=== PATIENT | female | born 1975 | race Caucasian/White ===

== ENCOUNTER 2023-04-21 14:48 | Outpatient (NON) | payer OTHER, SELFPAY | END 2023-04-21 14:49 | disposition home or self-care (01) | LOC: ANHLAB 14:55 | PROVIDERS: Visit Provider Nurse Practitioner | DX: D48.5 Neoplasm of uncertain behavior of skin (principal) | CPT/HCPCS: 88305 ==

== ENCOUNTER 2023-10-04 09:26 | Outpatient (CLI) | payer OTHER, SELFPAY ==
--- NOTE | ~2023-10-04 | MR_ITS ---
MRI of the brain Clinical History: Paresthesia Technique: Axial and sagittal T1-weighted images were acquired. These were followed by axial T2-weigh cain, diffusion weighted, gradient, and FLAIR images. Following intravenous administration of 19 cc Mu ltiHance gadolinium, T1-weighted fat-sat imaging was performed in the axial, sagittal, and coronal pl anes. Findings: There is no acute infarct or intracranial hemorrhage. There is hypointense signal abnormali ty in the periventricular white matter bilaterally. Ventricles and subarachnoid spaces are unremarkable. Orbits are unremarkable. Paranasal sinuses and m astoid air cells are clear. Major intracranial flow voids appear intact. Sagittal midline structures are intact. No definite abnormal signal seen in the corpus callosum. There is a probable small extra-axial enhancing mass in the right CP angle region (series 13 image 58 ), which appears to be separate from the neurovascular structures, probably a small meningioma. IMPRESSION: Probable 8 mm meningioma at the right CP angle region, as above. Hyperintense signal in the periventricular white matter. This could reflect chronic microvascular isc hemic change. Correlate for any possibility of demyelinating disease. Reviewed, dictated and finalized at location M. IMPRESSION: Probable 8 mm meningioma at the right CP angle region, as above. Hyperintense signal in the periventricular white matter. This could reflect chr onic microvascular ischemic change. Correlate for any possibility of demyelinat ing disease.
== END 2023-10-04 09:27 ==
PROVIDERS: PCP Internal Medicine
DX: R20.0 Anesthesia of skin (principal); R20.2 Paresthesia of skin; R42 Dizziness and giddiness
CPT/HCPCS: 70553; A9577

== ENCOUNTER 2024-10-06 09:53 | Outpatient (CLI) | payer OTHER, SELFPAY ==
--- NOTE | ~2024-10-06 | MR_ITS ---
MRI of the brain Clinical History: Meningioma Technique: Axial and sagittal T1-weighted images were acquired. These were followed by axial T2-weigh cain, diffusion weighted, gradient, and FLAIR images. Following intravenous administration of 17 cc Mu ltiHance gadolinium, T1-weighted fat-sat imaging was performed in the axial and coronal and sagittal planes. COMPARISON: 10/04/2023 Findings: No acute infarct or intracranial hemorrhage seen. Stable T2 hyperintense areas are present in the periventricular white matter, which could reflect demyelinating disease versus chronic microva scular ischemic change. Ventricles and subarachnoid spaces are unremarkable. Orbits are unremarkable. Paranasal sinuses and m astoid air cells are clear. Major intracranial flow voids are intact. Sagittal midline structures are intact. Stable 8 mm enhancing mass at the right CP angle region, compatible small meningioma versus possibly acoustic schwannoma. IMPRESSION: Stable 8 mm enhancing mass the right CP angle region, compatible with small meningioma versus possibl y acoustic trauma. Stable chronic white matter disease. Correlate for demyelinating disease versus chronic microvascular ischemic change. Reviewed, dictated and finalized at location M. IMPRESSION: Stable 8 mm enhancing mass the right CP angle region, compatible with small men ingioma versus possibly acoustic trauma. Stable chronic white matter disease. Correlate for demyelinating disease versus chronic microvascular ischemic change.
--- OUTSIDE RECORDS SUMMARY | 2024-10-06 09:58 | XMS_ITS | CONTINUITY OF CARE DOCUMENT ---
Author Name millie ipnto Address Unknown Organization [facility] Office Address [address] [place] [address] [address] [place] [address] Phone [phone] Care Team Providers Care Inbound Sales Manager Name Role Phone Pavel GLASER, Carolina Unavailable [phone] JACOBO GLASER, ADAM Unavailable [phone] ADAM CENTENO MD Unavailable PROBLEMS Condition Status Date Provider Notes Cardiovascular screening active Roya Bain INSURANCE PROVIDERS Payer name Policy type / Coverage type [place] red democrat ID SELF PAY TREATMENT PLAN Date Name CT, Coronary Calcium Score
--- OUTSIDE RECORDS SUMMARY | 2024-10-06 09:58 | XMS_ITS | Clinical Summary ---
Author Organization [facility] Address [address] [place] [address] Phone Care Team Providers Care Recorder [employer] Name Role Phone Warren Byers MD Primary Care Provider [phone] Deshaun Sharma MD Unavailable [phone] Allergies No known active allergies Medications buPROPion (WELLBUTRIN) 300 MG TABLET SR 24 HR XL tablet Take 300 mg by mouth every morning. Active levothyroxine (SYNTHROID) 100 MCG Tablet Take 100 mcg by mouth daily. Active omeprazole (PriLOSEC) 40 MG CAPSULE DELAYED RELEASE Take 40 mg by mouth daily. Active rosuvastatin (CRESTOR) 10 MG Tablet Take 10 mg by mouth daily. Active Encounters Date Type Department Care Team Description 09/13/2024 Telephone [facility] [address] [place] [address] Deshaun Sharma MD from Last 3 Months Family History Medical History Relation Name Comments Coronary Artery Disease Father Breast Cancer Mother Relation Name Status Comments Father Mother Social History Tobacco Use Types Packs/Day Years Used Date Smoking Tobacco: Former Cigarettes 0.5 25 1 - 2020 Smokeless Tobacco: Never Tobacco Cessation:Counseling Given: Not Answered Alcohol Use Standard Drinks/Week Comments Yes 0 (1 standard drink = 0.6 oz pur e alcohol) occasional Comments No Sex and Gender Information Value Date Recorded Sex Assigned at Female 02/08/2024 9:24 PM CDT Legal Sex Female 11:07 AM HOME [employer]CHOOL CO[employer]IN[employer] Gender Identity Female 02/08/2024 9:24 PM CDT Sexual Orientation Straight 02/08/2024 9: 24 PM CDT Last Filed Vital Signs Vital Sign Reading Time Taken Comments Blood Pressure 130/96 02/10/2024 2:26 PM CDT Pulse 94 02/10/2024 2:26 PM CDT Temperature 36.4 C (97.5 F) 02/10/2024 2:26 PM CDT Respiratory Rate 17 02/10/2024 2:26 PM CDT Oxygen Saturation 99% 02/10/2024 2:26 PM CDT Inhaled Oxygen Concentration - - Weight 88.5 kg (195 lb 3.2 oz) 02/10/2024 2:26 P M CDT Height 170.2 cm (5' 7) 02/10/2024 2:26 PM CDT Body Mass Index 30.57 02/10/2024 2:26 PM CDT Plan of Treatment Upcoming Encounters Date Type Department Care Team (Late st Contact Info) Description 10/09/2024 11:00 AM CDT Office Visit [facility] [place] [address] [place] [address] Deshaun Sharma MD [address] [place] [address] Health Maintenance Due Date Last Done Comments Hepatitis C Virus (HCV) Screening 1975 TdaP Immunization 1975 Hepatitis B Immunization (1 of 3 - 19+ 3-dose series) 1994 Discussion re Starting/Frequency of Mammograms 2015 Cologuard 2020 Colonoscopy 2020 Colorectal Cancer Screening 2020 Immunochemical Fecal Occult Blood 2020 SARS-COV-2 Immunization ( season) 2023 07/12/2020, 06/26/2020, 06/14/2020, Additional history exists Influenza Immunization (Season Ended) 2024 Respiratory Syncytial Virus (RSV) Immunization (Adult) (1 - 1-dose 75+ series) 2050 Human Papillomavirus (HPV) Immunization Aged Out No longer eligible based on patient's age to complete this topic Meningococcal Immunization (ACWY) Aged Out No longer eligible based on patient's age to complete this topic Pneumococcal Immunization Combined Aged Out No longer eligible based on patient's age to complete this topic Rotavirus Immunization Aged Out No lo nger eligible based on patient's age to complete this topic Insurance [facility] Care Teams Recorder [employer] Relationship Specialty Start Date End Date Warren Byers MD [address] [facility] [address] [place] [address] PCP - General Internal Medicine 03/10/22 Deshaun Sharma MD [address] [place] [address] Consulting Physician Neurology 03/10/22
--- OUTSIDE RECORDS SUMMARY | 2024-10-06 09:58 | XMS_ITS | Data Portability ---
Author Organization [place] - [facility] [employer], Main Office Address [address] [place] [address] Assessment No assessment recorded. Plan of Treatment Reminders Order Date Submit Date Provider Last Modified By Organization Details Last Modified Time Details Appointments None recorded. Lab lipid panel, serum 2023 024 [facility], [address] [place], [address], 4 14:02:51 CMP, serum or plasma 2023 024 [facility], [address] [place], [address], 4 14:02:57 c reactive protein, quant, high sensitivity , blood [id number] [facility], [address] [place], [address], 4 13:45:21 lipoprotein (A), serum [id number] [facility], [address] [place], [address], 4 13:45:22 TSH, serum or plasma [id number] [facility], [address] [place], [address], 4 13:45:21 T4, free, serum [id number] [place] [address] Outpatient Lab, [address] [place], [address], 4 13:45:21 TSH, serum or plasma 2022 023 [id number] [facility], [address] [place], [address], 3 15:25:14 T4, free, serum 2022 023 [id number] [facility], [address] [place], [address], 3 15:25:14 CMP, serum or plasma 2022 023 [email or web address] [facility], [address] [place], [address], 3 15:25:14 lipid panel, serum 2022 023 [email or web address] [facility], [address] [place], [address], 3 15:25:15 CBC w/ auto diff 2022 023 [id number] [facility], [address] [place], [address], 3 15:25:15 Referral None recorded. Procedures None recorded. Surgeries None recorded. Imaging None recorded. Medication Orders esomeprazol e magnesium 40 mg capsule,del ayed release 2022 023 [email or web address] [id number], [address] [facility], [place], [address], 4 12:30:48 Patient TargetsNo targets recorded. Patient Instructions Encounter Date Encounter Id Patient Instructions Last Modified By Organization Details Last Modified Time 07/12/2022 [id number] risk assessment* [email or web address] Not availabl e 07/12/2022 17:09:26 INFLUENZA VACCIN E Recommended today, but patient declined TD/TDAP Patient will get at local pharmacy/health department PNEUMONIA VACCINE Recommended at age 65 SHINGLES Not indicated MAMMOGRAM: Last Mammogram _ No screening indicated at this time, double mastectomy DEXA SCAN No screening indicated CERVICAL SCREENING/PELVIC EXAMINATION No screening necessary patient is up to date COLORECTAL SCREENING: Last Colonoscopy Recommended today, but patient declined DEPRESSION SCREENING Negative BMI Overweight try to lose 10% of your body weight NUTRITION Heart Healthy Diet PHYSICAL ACTIVITY Need more exercise/physical activity VISION Your next exam in: goes yearly ALCOHOL USE Occasional/Social Use TOBACCO USE former smoker LUNG CANCER SCREENING Non Smoker-not indicated SEXUALLY ACTIVE HEPATITIS C SCREENING Not indicated GLUCOSE SCREENING recommended LIPID SCREENING recommended [email or web address] Not available 07/12/2022 16:58:26 Medical wellness evaluation follow-up stable. Up of hypothyroidism as well as carcinoma breast. No interval complaints of any new problems. Is due for Cologuard test. 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 Will continue on current Rx check blood work consisting of CBC, CMP, lipid, thyroid and a Cologuard test. Follow-up in one year Cologuard [email or web address] Not available 07/12/2022 17:09:03 04/19/2023 [id number] Carcinoma breast -family history of cardiovascular disease -hypothyroidism- anxiety disorder. Plan at some lorazepam 1 mg t.i.d. On a p.r.n. Basis anxiety. Esomeprazole 40 mg once daily for reflux symptomatology. Check blood work as mentioned above including a lipoprotein A level and high sensitivity C-reactive protein. Portions of the record may have been created with voice recognition software. Occasional wrong-word or [id number] substitutions may have occurred due to the inherent limitations of voice recognition software. Read the chart carefully and recognize, using context, where substitutions have occurred. Keep Appt: Tue 04:00 PM [place] [email or web address] Not available 04/19/2023 12:10:06 07/18/2023 [id number] risk assessment* Not availabl e 07/18/2023 17:09:37 INFLUENZA VACCIN E Next vaccination to be given fall of _ TD/TDAP Patient will get at local pharmacy/health department PNEUMONIA VACCINE Recommended at age 65 SHINGLES Not indicated MAMMOGRAM: Last Mammogram _ DEXA SCAN No screening indicated CERVICAL SCREENING/PELVIC EXAMINATION No screening necessary patient is up to date COLORECTAL SCREENING: Last Colonoscopy Recommended DEPRESSION SCREENING Negative BMI Overweight NUTRITION Heart Healthy Diet PHYSICAL ACTIVITY Need more exercise/physical activity VISION Your next exam in: goes every 2 yrs ALCOHOL USE Occasional/Social Use TOBACCO USE former smoker LUNG CANCER SCREENING Not indicated until age 50 SEXUALLY ACTIVE HEPATITIS C SCREENING Not indicated GLUCOSE SCREENING recommended LIPID SCREENING recommended [email or web address] Not available 07/18/2023 16:59:14 Adult health examination risk assessment stable. Follow-up for GERD, hyperlipidemia and carcinoma of the breast all clinically stable. Has had extensive evaluation cardiovascular young. Has had calcium score as well as other testing which have been fine. On cholesterol medication but does have a high lipoprotein a level. Will check a lipid and CMP panel. Overall is doing fine. Will continue on current Rx. Follow-up in six months. Portions of the record may have been created with voice recognition software. Occasional wrong-word or [id number] substitutions may have occurred due to the inherent limitations of voice recognition software. Read the chart carefully and recognize, using context, where substitutions have occurred. [email or web address] Not available 07/18/2023 17:09:20 Reason for Referral None Reported. Results Created Date Observation Date Name Description Value Unit Range Abnormal Flag Note LastModifiedBy Organization Detail LastModifiedTime 07/27/19 23 07/26/2022 CBC/C OMPLE TE BLD COUNT W/DIF F white blood cells 8.8 x10'3 /uL 4.2-10 .8 Not Available [facility] (Lab) [address] [place], [address], 07/26/2022 13:16:14 07/27/19 23 07/26/2022 CBC/C OMPLE TE BLD COUNT W/DIF F red blood cells 4.32 x10'6 /uL 3.80-5 .20 Not Available [facility] (Lab) [address] [place], [address], 07/26/2022 13:16:14 07/27/19 23 07/26/2022 CBC/C OMPLE TE BLD COUNT W/DIF F hemoglobin 12.7 g/dL 12.0-1 5.6 Not Available [facility] (Lab) [address] [place], [address], 07/26/2022 13:16:14 07/27/19 23 07/26/2022 CBC/C OMPLE TE BLD COUNT W/DIF F hematocrit 40.1 % 35.7-4 5.7 Not Available [facility] (Lab) [address] [place], [address], 07/26/2022 13:16:14 07/27/19 23 07/26/2022 CBC/C OMPLE TE BLD COUNT W/DIF F mean red cell volume 92.8 fL 82.0-9 9.0 Not Available [facility] (Lab) [address] [place], [address], 07/26/2022 13:16:14 07/27/19 23 07/26/2022 CBC/C OMPLE TE BLD COUNT W/DIF F mean red cell hemoglobin 29.4 pg 27.0-3 3.0 Not Available [facility] (Lab) [address] [place], [address], 07/26/2022 13:16:14 07/27/19 23 07/26/2022 CBC/C OMPLE TE BLD COUNT W/DIF F mean RBC HGB concentratio n 31.7 g/dL 31.0-3 6.0 Not Available [facility] (Lab) [address] [place], [address], 07/26/2022 13:16:14 07/27/19 23 07/26/2022 CBC/C OMPLE TE BLD COUNT W/DIF F red cell distribution width 13.2 % 11.8-1 5.5 Not Available [facility] (Lab) [address] [place], [address], 07/26/2022 13:16:14 04/07/12 2207/26/2022 CBC/C OMPLE TE BLD COUNT W/DIF F platelets 350 x10'3 /uL 150-40 0 Not Available [facility] (Lab) [address] [place], [address], 07/26/2022 13:16:14 07/27/19 23 07/26/2022 CBC/C OMPLE TE BLD COUNT W/DIF F mean platelet volume 10.0 fL 9.0-12 .4 Not Available [facility] (Lab) [address] [place], [address], 07/26/2022 13:16:14 07/27/1907/26/2022 CBC/C OMPLE TE BLD COUNT W/DIF F neutrophils 56.8 % 39.0-7 2.0 Not Available [facility] (Lab) [address] [place], [address], 07/26/2022 13:16:14 07/27/1907/26/2022 CBC/C OMPLE TE BLD COUNT W/DIF F lymphocytes 31.8 % 16.0-4 7.0 Not Available [facility] (Lab) [address] [place], [address], 07/26/2022 13:16:14 07/27/1907/26/2022 CBC/C OMPLE TE BLD COUNT W/DIF F monocytes 9.0 % 5.0-12 .0 Not Available [facility] (Lab) [address] [place], [address], 07/26/2022 13:16:14 07/27/1907/26/2022 CBC/C OMPLE TE BLD COUNT W/DIF F eosinophils 1.4 % 1.0-7. 0 Not Available [facility] (Lab) [address] [place], [address], 07/26/2022 13:16:14 07/27/1907/26/2022 CBC/C OMPLE TE BLD COUNT W/DIF F basophils 0.8 % 0.0-2. 0 Not Available [facility] (Lab) [address] [place], [address], 07/26/2022 13:16:14 07/27/19 23 07/26/2022 CBC/C OMPLE TE BLD COUNT W/DIF F immature granulocytes 0.2 % 0.00-0 .50 Not Available [facility] (Lab) [address] [place], [address], 07/26/2022 13:16:14 07/27/1907/26/2022 CBC/C OMPLE TE BLD COUNT W/DIF F neutrophils, absolute count 4.98 x10'3 /uL 1.5-8. 0 Not Available [facility] (Lab) [address] [place], [address], 07/26/2022 13:16:14 07/27/1907/26/2022 CBC/C OMPLE TE BLD COUNT W/DIF F lymphocytes, absolute count 2.79 x10'3 /uL 1.07-3 .43 Not Available [facility] (Lab) [address] [place], [address], 07/26/2022 13:16:14 07/27/1907/26/2022 CBC/C OMPLE TE BLD COUNT W/DIF F monocytes, absolute count 0.79 x10'3 /uL 0.29-0 .99 Not Available [facility] (Lab) [address] [place], [address], 07/26/2022 13:16:14 07/27/1907/26/2022 CBC/C OMPLE TE BLD COUNT W/DIF F eosinophils, absolute count 0.12 x10'3 /uL 0.02-0 .53 Not Available [facility] (Lab) [address] [place], [address], 07/26/2022 13:16:14 07/27/19 23 07/26/2022 CBC/C OMPLE TE BLD COUNT W/DIF F basophils, absolute count 0.07 x10'3 /uL 0.01-0 .08 Not Available [facility] (Lab) [address] [place], [address], 07/26/2022 13:16:14 07/27/19 23 07/26/2022 CBC/C OMPLE TE BLD COUNT W/DIF F immature granulocytes ,absolute 0.02 x10'3 /uL 0.00-0 .05 Not Available [facility] (Lab) [address] [place], [address], 07/26/2022 13:16:14 07/27/19 23 07/26/2022 CBC/C OMPLE TE BLD COUNT W/DIF F nucleated red blood cells 0.0 % -0 Not Available [facility] (Lab) [address] [place], [address], 07/26/2022 13:16:14 07/27/19 23 07/26/2022 CBC/C OMPLE TE BLD COUNT W/DIF F NRBC# 0.00 x10'3 /uL Not Available [facility] (Lab) [address] [place], [address], 07/26/2022 13:16:14 07/27/19 23 07/26/2022 T4 FREE free T4 1.30 NG/dL 0.78-2 .19 Not Available [facility] (Lab) [address] [place], [address], 07/26/2022 15:15:38 07/27/1907/26/2022 COMPR EHENS AGATA METAB OLIC PANEL sodium 138 mmol/ L 137-14 5 Not Available [facility] (Lab) [address] [place], [address], 07/26/2022 15:45:03 07/27/19 23 07/26/2022 COMPR EHENS AGATA METAB OLIC PANEL potassium 4.4 mmol/ L 3.5-5. 1 Not Available [facility] (Lab) [address] [place], [address], 07/26/2022 15:45:03 07/27/19 23 07/26/2022 COMPR EHENS AGATA METAB OLIC PANEL chloride 107 mmol/ L 98-107 Not Available [facility] (Lab) [address] [place], [address], 07/26/2022 15:45:03 07/27/19 23 07/26/2022 COMPR EHENS AGATA METAB OLIC PANEL carbon dioxide 22 mmol/ L 22-30 Not Available [facility] (Lab) [address] [place], [address], 07/26/2022 15:45:03 07/27/19 23 07/26/2022 COMPR EHENS AGATA METAB OLIC PANEL anion gap 13.4 mmol/ L 14-22 low Not Available [facility] (Lab) [address] [place], [address], 07/26/2022 15:45:03 07/27/19 23 07/26/2022 COMPR EHENS AGATA METAB OLIC PANEL glucose 92 mg/dL 70-99 Not Available [facility] (Lab) [address] [place], [address], 07/26/2022 15:45:03 07/27/19 23 07/26/2022 COMPR EHENS AGATA METAB OLIC PANEL BUN 13 mg/dL 8-19 Not Available [facility] (Lab) [address] [place], [address], 07/26/2022 15:45:03 07/27/19 23 07/26/2022 COMPR EHENS AGATA METAB OLIC PANEL creatinine 0.84 mg/dL 0.66-1 .25 Not Available [facility] (Lab) [address] [place], [address], 07/26/2022 15:45:03 07/27/19 23 07/26/2022 COMPR EHENS AGATA METAB OLIC PANEL GFR >60 Refer ence Range : [place] ge GFR Healt hy Adult : >60 mL/mi n/1.7 3 m2 Chron ic Kidne y Disea se: 15-60 mL/mi n/1.7 3 m2 Kidne y Failu re: <15/m L/min /1.73 m2 www.n iddk. nih.g ov The MDRD study equat ion has not been valid ated in child yonatan <18 years of age; pregn ant women ; the elder ly >85 years of age; or in some racia l or ethni c subgr oups, such as Hismatias nics. Outsi de the valid ated alberto eters , estim ated GFR is less accur ate, requi ring clini beata judgm ent on a case- by-ca se basis . Clini beata inter preta tion for other races and ages must be made by the clini gregory. The MDRD study equat ion has not been valid ated for the evalu ation of serum creat inine relat ed to nutri dany l statu s or medic ation usage . For perso ns <18 years of age, a pedia tric GFR calcu lator is avail able on the [facility] websi te: https ://sachin whitlock.o rg/pr ofess ional s/kdo qi/gf r_cal culat or Not Available [facility] (Lab) [address] [place], [address], 07/26/2022 15:45:03 07/27/19 23 07/26/2022 COMPR EHENS AGATA METAB OLIC PANEL alkaline phosphatase 67 U/L 38-126 Not Available [facility] (Lab) [address] [place], [address], 07/26/2022 15:45:03 07/27/19 23 07/26/2022 COMPR EHENS AGATA METAB OLIC PANEL alanine aminotransfe rase 20 U/L 0-35 Not Available [facility] (Lab) [address] [place], [address], 07/26/2022 15:45:03 07/27/19 23 07/26/2022 COMPR EHENS AGATA METAB OLIC PANEL aspartate aminotransfe rase 25 U/L 15-37 Not Available [facility] (Lab) [address] [place], [address], 07/26/2022 15:45:03 07/27/19 23 07/26/2022 COMPR EHENS AGATA METAB OLIC PANEL bilirubin, total 0.70 mg/dL 0.20-1 .30 Not Available [facility] (Lab) [address] [place], [address], 07/26/2022 15:45:03 07/27/19 23 07/26/2022 COMPR EHENS AGATA METAB OLIC PANEL calcium 8.8 mg/dL 8.4-10 .2 Not Available [facility] (Lab) [address] [place], [address], 07/26/2022 15:45:03 07/27/19 23 07/26/2022 COMPR EHENS AGATA METAB OLIC PANEL total protein 7.0 g/dL 6.3-8. 2 Not Available [facility] (Lab) [address] [place], [address], 07/26/2022 15:45:03 07/27/19 23 07/26/2022 COMPR EHENS AGATA METAB OLIC PANEL albumin 3.8 g/dL 3.4-5. 0 Not Available [facility] (Lab) [address] [place], [address], 07/26/2022 15:45:03 07/27/19 23 07/26/2022 COMPR EHENS AGATA METAB OLIC PANEL globulin 3.2 g/dL 2.6-4. 2 Not Available [facility] (Lab) [address] [place], [address], 07/26/2022 15:45:03 07/27/19 23 07/26/2022 COMPR EHENS AGATA METAB OLIC PANEL A/G ratio 1.2 ratio 1.0-2. 0 Not Available [facility] (Lab) [address] [place], [address], 07/26/2022 15:45:03 07/27/19 23 07/26/2022 LIPID PANEL cholesterol 176 mg/dL 140-19 9 NIH HARVINDER NSUS RECOM MENDA TION FOR RAZIA STERO L: ADULT CHILD LOW RISK: <200 <170 BORDE RLINE : <200- 239 ----- HIGH RISK: >240 >200 Not Available [facility] (Lab) [address] [place], [address], 07/26/2022 15:45:05 07/27/19 23 07/26/2022 LIPID PANEL triglyceride s 121 mg/dL 0-150 NIH HARVINDER NSUS REPOR T RECOM MENDA TION FOR TRIGL YCERI KENNEDI: ADULT CHILD LOW RISK: <150 ----- BODER LINE: 150-1 99 ----- HIGH RISK: >200 ----- Not Available [facility] (Lab) [address] [place], [address], 07/26/2022 15:45:05 07/27/19 23 07/26/2022 LIPID PANEL HDL cholesterol 53 mg/dL 40- Not Available [facility] (Lab) [address] [place], [address], 07/26/2022 15:45:05 07/27/1907/26/2022 LIPID PANEL LDL cholesterol, calculated 99 mg/dL 0-130 NIH HARVINDER NSUS REPOR T RECOM MENDA TIONS FOR LDL: ADULT CHILD LOW RISK <130 <110 (OPTI MAL LDL) <100 ----- BORDE RLINE : 130-1 59 ----- HIGH RISK: >160 >130 A TRIGL YCERI DE RESUL T >400 INVAL IDATE S THE CALCU LATIO N FOR LDL FRACT IONAT ION - THE LDL RESUL T WILL NOT BE REPOR EMA. Not Available [facility] (Lab) [address], [place], [address], 07/26/2022 15:45:05 07/27/1907/26/2022 TSH thyroid-stim ulating hormone 0.592 uIU/m L 0.465- 4.680 Not Available [facility] (Lab) [address], [place], [address], 07/26/2022 15:45:30 04/19/2004/22/2023 LIPOP ROTEI N (A) lipoprotein (A) 125 nmol/ L high Refer ence Range <75 Risk: Optim al <75 Moder ate 75-12 5 High >125 Cardi ovasc ular event risk categ ory cut point s (opti mal, moder ate, high) are based on Lauren Elizabeth. JAC 2017; 69:69 2-711 . Not Available [employer] [facility] [address] [place], [address], 04/22/2023 10:55:34 04/19/2004/22/2023 HS CRP hs CRP 8.7 mg/L high Refer ence Range Optim al <1.0 Robin morales PS et al. Endoc r Pract .2017 ;23(S uppl 2):1- 87. For ages >17 Years : hs-CR P mg/L Risk Accor ding to AHA/C DC Guide lines <1.0 Lower relat agata cardi ovasc ular risk. 1.0-3 .0 [place] ge relat agata cardi ovasc ular risk. 3.1-1 0.0 Highe r relat agata cardi ovasc ular risk. Consi iraida retes ting in 1 to 2 weeks to exclu de a benig n trans ient eleva tion in the basel ine CRP value secon oscar to infec tion or infla mmati on. >10.0 Persi stent eleva tion, upon retes ting, may be assoc iated with infec tion and infla mmati on. Not Available [address], [address], 04/22/2023 10:55:34 04/19/20 23 04/22/2023 T4, FREE T4, free 1.3 NG/dL 0.8-1. 8 normal Not Available [facility] [address] [place] [address] [place], [address], 04/22/2023 10:55:35 04/19/20 23 04/22/2023 TSH TSH 1.29 mIU/L normal Refer ence Range > or = 20 Years 0.40- 4.50 Pregn roula Range s First trime ster 0.26- 2.66 Secon d trime ster 0.55- 2.73 Third trime ster 0.43- 2.91 Not Available [address], [address], 04/22/2023 10:55:35 07/19/19 24 07/19/2023 LIPID PANEL cholesterol 147 mg/dL 140-19 9 NIH HARVINDER NSUS RECOM MENDA TION FOR RAZIA STERO L: ADULT CHILD LOW RISK: <200 <170 BORDE RLINE : <200- 239 ----- HIGH RISK: >240 >200 Not Available [facility] (Lab) [address] [place], [address], 07/19/2023 14:02:51 07/19/19 24 07/19/2023 LIPID PANEL triglyceride s 88 mg/dL 0-150 NIH HARVINDER NSUS REPOR T RECOM MENDA TION FOR TRIGL YCERI KENNEDI: ADULT CHILD LOW RISK: <150 ----- BODER LINE: 150-1 99 ----- HIGH RISK: >200 ----- Not Available [facility] (Lab) [address] [place], [address], 07/19/2023 14:02:51 07/19/19 24 07/19/2023 LIPID PANEL HDL cholesterol 68 mg/dL 40- Not Available [facility] (Lab) [address] [place], [address], 07/19/2023 14:02:51 07/19/19 24 07/19/2023 LIPID PANEL LDL cholesterol, calculated 61 mg/dL 0-130 NIH HARVINDER NSUS REPOR T RECOM MENDA TIONS FOR LDL: ADULT CHILD LOW RISK <130 <110 (OPTI MAL LDL) <100 ----- BORDE RLINE : 130-1 59 ----- HIGH RISK: >160 >130 A TRIGL YCERI DE RESUL T >400 INVAL IDATE S THE CALCU LATIO N FOR LDL FRACT IONAT ION - THE LDL RESUL T WILL NOT BE REPOR EMA. Not Available [facility] (Lab) [address] [place], [address], 07/19/2023 14:02:51 07/19/19 24 07/19/2023 COMPR EHENS AGATA METAB OLIC PANEL sodium 138 mmol/ L 137-14 5 Not Available [facility] (Lab) [address] [place], [address], 07/19/2023 14:02:57 07/19/19 24 07/19/2023 COMPR EHENS AGATA METAB OLIC PANEL potassium 4.6 mmol/ L 3.5-5. 1 Not Available [facility] (Lab) [address] [place], [address], 07/19/2023 14:02:57 07/19/19 24 07/19/2023 COMPR EHENS AGATA METAB OLIC PANEL chloride 109 mmol/ L 98-107 high Not Available [facility] (Lab) [address] [place], [address], 07/19/2023 14:02:57 07/19/19 24 07/19/2023 COMPR EHENS AGATA METAB OLIC PANEL carbon dioxide 26 mmol/ L 22-30 Not Available [facility] (Lab) [address] [place], [address], 07/19/2023 14:02:57 07/19/19 24 07/19/2023 COMPR EHENS AGATA METAB OLIC PANEL anion gap 7.6 mmol/ L 14-22 low Not Available [facility] (Lab) [address] [place], [address], 07/19/2023 14:02:57 07/19/19 24 07/19/2023 COMPR EHENS AGATA METAB OLIC PANEL glucose 97 mg/dL 70-99 Not Available [facility] (Lab) [address] [place], [address], 07/19/2023 14:02:57 07/19/19 24 07/19/2023 COMPR EHENS AGATA METAB OLIC PANEL BUN 12 mg/dL 8-19 Not Available [facility] (Lab) [address] [place], [address], 07/19/2023 14:02:57 07/19/19 24 07/19/2023 COMPR EHENS AGATA METAB OLIC PANEL creatinine 0.85 mg/dL 0.66-1 .25 Not Available [facility] (Lab) [address] [place], [address], 07/19/2023 14:02:57 07/19/19 24 07/19/2023 COMPR EHENS AGATA METAB OLIC PANEL GFR >60 Refer ence Range : [place] ge GFR Healt hy Adult : >60 mL/mi n/1.7 3 m2 Chron ic Kidne y Disea se: 15-60 mL/mi n/1.7 3 m2 Kidne y Failu re: <15/m L/min /1.73 m2 www.n iddk. nih.g ov The MDRD study equat ion has not been valid ated in child yonatan <18 years of age; pregn ant women ; the elder ly >85 years of age; or in some racia l or ethni c subgr oups, such as Hispa nics. Outsi de the valid ated alberto eters , estim ated GFR is less accur ate, requi ring clini beata judgm ent on a case- by-ca se basis . Clini beata inter preta tion for other races and ages must be made by the clini gregory. The MDRD study equat ion has not been valid ated for the evalu ation of serum creat inine relat ed to nutri dany l statu s or medic ation usage . For perso ns <18 years of age, a pedia tric GFR calcu lator is avail able on the [facility] websi te: https ://sachin w.kid kamlesh.o rg/pr ofess ional s/kdo qi/gf r_cal culat or Not Available [facility] (Lab) [address] [place], [address], 07/19/2023 14:02:57 07/19/19 24 07/19/2023 COMPR EHENS AGATA METAB OLIC PANEL alkaline phosphatase 64 U/L 38-126 Not Available [facility] (Lab) [address] [place], [address], 07/19/2023 14:02:57 07/19/19 24 07/19/2023 COMPR EHENS AGATA METAB OLIC PANEL alanine aminotransfe rase 29 U/L 0-35 Not Available [facility] (Lab) [address] [place], [address], 07/19/2023 14:02:57 07/19/19 24 07/19/2023 COMPR EHENS AGATA METAB OLIC PANEL aspartate aminotransfe rase 32 U/L 15-37 Not Available [facility] (Lab) [address] [place], [address], 07/19/2023 14:02:57 07/19/19 24 07/19/2023 COMPR EHENS AGATA METAB OLIC PANEL bilirubin, total 0.70 mg/dL 0.20-1 .30 Not Available [facility] (Lab) [address] [place], [address], 07/19/2023 14:02:57 07/19/19 24 07/19/2023 COMPR EHENS AGATA METAB OLIC PANEL calcium 9.0 mg/dL 8.4-10 .2 Not Available [facility] (Lab) [address] [place], [address], 07/19/2023 14:02:57 07/19/19 24 07/19/2023 COMPR EHENS AGATA METAB OLIC PANEL total protein 6.6 g/dL 6.3-8. 2 Not Available [facility] (Lab) [address] [place], [address], 07/19/2023 14:02:57 07/19/19 24 07/19/2023 COMPR EHENS AGATA METAB OLIC PANEL albumin 3.8 g/dL 3.4-5. 0 Not Available [facility] (Lab) [address] [place], [address], 07/19/2023 14:02:57 07/19/19 24 07/19/2023 COMPR EHENS AGATA METAB OLIC PANEL globulin 2.8 g/dL 2.6-4. 2 Not Available [facility] (Lab) [address] [place], [address], 07/19/2023 14:02:57 07/19/19 24 07/19/2023 COMPR EHENS AGATA METAB OLIC PANEL A/G ratio 1.4 ratio 1.0-2. 0 Not Available [facility] (Lab) [address] [place], [address], 07/19/2023 14:02:57 01/30/20 22 01/29/2022 CT, head, w/wo contr ast [facility] [address] [place] [address] [phone] Patien t Name: KENNED Y, KASSIE Access ion #: [id number] Sex: F : 1975 3 Locati on: RAD Attend ing Physic amber: KITA BYERS CE Orderi ng Physic amber: KITA BYERS CE Exam Date: 10:35 AM Exam Name: CT HEAD W/WO Admitt ing Diagno sis(es ): RADIOL OGY REPORT - FINAL EXAM: CT HEAD W/WO HISTOR Y: FACIAL PAREST HESIA right- sided facial a numbne ss COMPAR FINA: None TECHNI QUE: Noncon trast and contra st axial CT images of the head were perfor med. Sagitt al and castle l reform atted images were obtain ed. This CT exam was perfor med using 1 or more of the follow ing dose reduct ion techni ques: Automa ema exposu re contro l, adjust ment of the mA and/or kv accord ing to patien t size, or the use of iterat agata recons tructi on techni ques. Dose: 100 mL Isovue -300 intrav enous. Page 1 of [address] [facility] [place] Piedad hopper Name: KASSIE LYNN Access ion #: [id number] Sex: F : 1975 3 Exam Date: 10:35 AM Exam Name: CT HEAD W/WO Admitt ing Diagno sis(es ): FINDIN GS: Brain: The miranda-w lisa matter differ entiat ion is within normal limits . There is not eviden ce of edema, enceph alomal acic residu als, residu als of infarc tion, hemorr kadeem, midlin e shift, or sulcal efface ment. No Ventri cles: Midlin e, normal size. Shovel Operator ior fossa: Unrema rkable Mastoi d air cells: Aerate d bilate rally. Sinuse s: Unrema rkable as visual ized. Soft tissue s: Unrema rkable . IMPRES JERRY: No CT eviden ce of an acute intrac ranial proces s. Create d and electr onical ly signed by: Zoran avila MD Signed Date: 12:32 PM (CT) Dictat ed by: Zoran avila MD DD: 12:32 PM (CT) DT: 12:32 PM (CT) Page 2 of 2 [id number] [facility] (Imaging) [address] [place], [address], 06/23/2022 20:41:36 05/09/19 24 05/06/2023 CT, coron memo calci um score No observ ation record ed. [address] [facility] [address], [place], [address], 05/10/2023 08:15:09 10/04/19 24 10/04/2023 MRI, brain + brain stem, w/o contr ast No observ ation record ed. [address] [facility] [address] [place] [address], [place], [address], 10/04/2023 14:15:23 Result Notes Documentation Provider Name and Address Organization Details Recorded Time Ct, Head, W/wo Contrast : [facility] [address] [place] [address] Patient Name: KASSIE GRECO Sex: F : 1975 Location: [facility] Attending Physician: ADAM BYERS Ordering Physician: ADAM BYERS Exam Date: 01/29/2022 10:35 AM Exam Name: CT HEAD W/WO Admitting Diagnosis(es): RADIOLOGY REPORT - FINAL EXAM: CT HEAD W/WO HISTORY: FACIAL PARESTHESIA right-sided facial a numbness COMPARISON: None TECHNIQUE: Noncontrast and contrast axial CT images of the head were performed. Sagittal and coronal reformatted images were obtained. This CT exam was performed using 1 or more of the following dose reduction techniques: Automated exposure control, adjustment of the mA and/or kv according to patient size, or the use of iterative reconstruction techniques. Dose: 100 mL Isovue-300 intravenous. Page 1 of 2 [facility] Patient Name: KASSIE GRECO Sex: F : 1975 Exam Date: 01/29/2022 10:35 AM Exam Name: CT HEAD W/WO Admitting Diagnosis(es): FINDINGS: Brain: The miranda-white matter differentiation is within normal limits. There is not evidence of edema, encephalomalacic residuals, residuals of infarction, hemorrhage, midline shift, or sulcal effacement. No Ventricles: Midline, normal size. Posterior fossa: Unremarkable Mastoid air cells: Aerated bilaterally. Sinuses: Unremarkable as visualized. Soft tissues: Unremarkable. IMPRESSION: No CT evidence of an acute intracranial process. Created and electronically signed by: Zoran Graham MD Signed Date: 01/29/2022 12:32 PM (CT) Dictated by: Zoran Graham MD (CT) (CT) Page 2 of 2 Not Available [facility] 06/23/2022 20:41:37 Problems Name Problem SNOMED Code Status Onset Date Resolution Date Notes Provider Name and Address Organization Details Recorded Time Anxiety disorder 881656548 Active 2021 Not Available [facility] 3 20:40:23 Abdominal pain 47069804 Active 2022 Not Available [facility] 3 20:40:23 Soft tissue lesion of foot region 956609770 Active 2018 Not Available [facility] 3 20:40:23 Malignant tumor of breast 299072820 Active 2018 Not Available [facility] 3 20:40:23 Family history of Cardiovascula r disease 017704980 Active 2018 Not Available [facility] 3 20:40:23 Breast problem 514444234 Active 2018 Not Available [facility] 3 20:40:23 Acute pharyngitis 923471344 Active 2021 Not Available [facility] 3 20:40:23 Hypothyroidis m 92148766 Active 2021 Not Available [facility] 3 20:40:23 Tobacco dependence syndrome 76250370 Active 2018 Not Available [facility] 3 20:40:23 Facial paresthesia 68712219 Active 2021 Not Available [facility] 3 20:40:23 Carcinoma of breast 878375418 Active 2022 Adam Byers MD [address], [place], [address] , [facility] 3 17:04:52 Carcinoma of breast 532028185 Active 2022 Adam Byers MD [address], [address], [place], [address] , [facility] 3 17:08:41 Gastro-esopha geal reflux disease with esophagitis 694642090 Active 2022 Adam Byers MD [address], [address], [place], [address] , [facility] 3 12:01:12 Gastroesophag eal reflux disease 795092004 Active 2022 Adam Byers MD [address], [address], [place], [address] , [facility] 3 12:09:33 Anxiety 57563836 Active 2022 Shani Sweet CMA null, [facility] 3 15:09:56 Pure hypercholeste rolemia 331863115 Active 2023 Adam Byers MD [address], [place], [address] , [facility] 4 13:53:57 Notes:cancer - breast Problem Notes None recorded. Medical Equipment None Reported. Medications Name Sig Start Date Stop Date Status Note LastModified by Organization Details LastModified Time amoxicillin 500 mg capsule Take 1 capsule every 8 hours by oral route. active Not Available Not Available No t Available triamcinolo ne acetonide 0.5 % topical cream 07/06 completed Not Available Not Available Not Available valacyclovi r 1 gram tablet TAKE 1 TABLET BY MOUTH THREE TIMES A DAY FOR 7 DAYS 07/12 completed Not Available Not Available Not Available prednisone 20 mg tablet TAKE 3 TABLETS BY MOUTH ONCE DAILY FOR 5 DAYS 07/12 completed Not Available Not Available Not Available phentermine 30 mg capsule TAKE 1 CAPSULE BY MOUTH EVERY DAY active Not Available Not Available No t Available levothyroxi ne 75 mcg tablet Take 1 tablet every day by oral route. active Not Available Not Available No t Available levothyroxi ne 100 mcg tablet TAKE 1 TABLET DAILY 2024 active Not Available Not Available Not Avai lable cephalexin 500 mg capsule Take 1 capsule every 6 hours by oral route. active Not Available Not Available No t Available esomeprazol e magnesium 40 mg capsule,del ayed release TAKE 1 CAPSULE DAILY IN THE MORNING active Not Available Not Available No t Available diclofenac sodium 75 mg tablet,lindsay yed release TAKE 1 TABLET BY MOUTH TWICE A DAY 07/12 completed Not Available Not Available Not Available lorazepam 1 mg tablet TAKE 1 TABLET BY MOUTH 3 TIMES A DAY NEEDED active Not Available Not Available No t Available methylpredn isolone 4 mg tablets in a dose pack As directed 07/06 completed Not Available Not Available Not Available doxycycline hyclate 100 mg tablet Take 1 tablet twice a day by oral route. active Not Available Not Available No t Available rosuvastati n 10 mg tablet take one tablet daily active Not Available Not Available No t Available bupropion HCl XL 300 mg 24 hr tablet, extended release Take 1 tablet every day by oral route. active Not Available Not Available No t Available Wellbutrin XL 150 mg 24 hr tablet, extended release Take 1 tablet every day by oral route. 04/19 completed Not Available Not Available Not Available nitrofurant oin monohydrate /macrocryst als 100 mg capsule TAKE 1 CAPSULE BY MOUTH TWICE A DAY FOR 5 DAYS active Not Available Not Available No t Available hydrocodone 5 mg-acetamin ophen 300 mg tablet 07/12 completed Not Available Not Available Not Available Chantix Starting Month Box 0.5 mg (11)-1 mg (42) tablets in dose pack As directed active Not Available Not Available No t Available Vitals Date Recorded Body height Oxygen saturation Oxygen saturation in Arterial blood by Pulse oximetry Heart rate Body temperature Body weight Systolic blood pressure Diastolic blood pressure Provider Name and Address Organization Details Last Updated DateTime 3 170.18 cm 99 % 99 % 91 /min 97.5 [degF] 22140.6 6 g 126 mm[Hg] 86 mm[Hg] Not Available [facility] 3 20:39:50 Date Recorded Body height Body mass index (BMI) Body weight Body temperature Heart rate Oxygen saturation Oxygen saturation in Arterial blood by Pulse oximetry Systolic blood pressure Diastolic blood pressure Provider Name and Address Organization Details Last Updated DateTime 3 170.18 cm 31.3 kg/m2 54488.4 7 g 96.9 [degF] 95 /min 99 % 99 % 118 mm[Hg] 78 mm[Hg] [employer] [facility] 3 16:53:18 Date Recorded Body height Body mass index (BMI) Body weight Heart rate Body temperature Oxygen saturation Oxygen saturation in Arterial blood by Pulse oximetry Systolic blood pressure Diastolic blood pressure Provider Name and Address Organization Details Last Updated DateTime 4 170.18 cm 31.1 kg/m2 62228.0 9 g 86 /min 97 [degF] 96 % 96 % 122 mm[Hg] 72 mm[Hg] [employer] [facility] 4 16:50:09 Date Recorded Body mass index (BMI) Body height Oxygen saturation Oxygen saturation in Arterial blood by Pulse oximetry Heart rate Body temperature Body weight Systolic blood pressure Diastolic blood pressure Provider Name and Address Organization Details Last Updated DateTime 2 32 kg/m2 170.18 cm 100 % 100 % 88 /min 97 [degF] 63406.8 4 g 130 mm[Hg] 80 mm[Hg] Not Available [facility] 3 20:39:50 Date Recorded Heart rate Provider Name an d Address Organization Details Last Updated DateTime 04/19/2023 80 /min Adam Byers MD [address] [place] [address], [address], [facility] 04/19/2023 12:02:39 Date Recorded Body height Body mass index (BMI) Body weight Body temperature Systolic blood pressure Diastolic blood pressure Provider Name and Address Organization Details Last Updated DateTime 3 170.18 cm 30.4 kg/m2 06525.9 2 g 98.1 [degF] 120 mm[Hg] 76 mm[Hg] Nikki ANH PatelN [place] [facility] 3 11:33:32 Social History None recorded. Functional Status None recorded. Mental Status None recorded. Family History Nothing Reported Notes:Mother 65 hx of CA of Breast - Perforated PUD - DM Father 50 sudden from CAD. Fraternal uncle with CAD One brother living good health has a heart murmur One half sister living in good health cancer - mother Medical History Condition Response BLINDNESS N NERVE DISEASE N RHEUMATIC FEVER N BLADDER PROBLEMS N KIDNEY STONES N MRSA N OTHER # 1 N POLIO N LUNG DISEASE/DISORDER N HISTORY OF DRUG ABUSE N RADIATION / CHEMOTHERAPY N COPD N Other # 2 N BLOOD DISEASES N EAR OR HEARING PROBLEMS N MUMPS N SHINGLES N BOWEL PROBLEMS N DEPRESSION (INCLUDING POST ) N STROKE/TIA N ULCERS N BENIGN PROSTATIC HYPERPLASIA N MEASLES N HYPOTENSION N MYOCARDIAL INFARCTION N OBESITY N GERD/NAUSEA N ANEURYSM N URINARY/BLADDER/KIDNEY PROBLEMS N CORONARY ARTERY DISEASE (CAD) N ADDICTION CONCERNS N Impotence N ENDOMETRIOSIS N USE OF BLOOD THINNERS N SKIN PROBLEMS N GASTROINTESTINAL DISORDER N PERIPHERAL VASCULAR DISEASE N MUSCLE,JOINT OR BONE PROBLEMS N GASTROINTESTINAL BLEEDING N BLOOD CLOTS N ASTHMA N CATARACTS N ERECTILE DYSFUNCTION N VARICOSITIES N GI PROBLEMS N Low Testosterone N INFERTILITY N AIDS/HIV N CHEMOTHERAPY / RADIATION N LIVER DISEASE N MALE HYPOGONADISM N HYPERTENSION N Deficiency N TOURETTE'S N ANXIETY DISORDER N BLOOD TRANSFUSION N ANEMIA/BLOOD DISORDER N CHRONIC EAR INFECTIONS N BRONCHITIS N TUBERCULOSIS N GLAUCOMA N FOOT PROBLEM N DIVERTICULITIS N SLEEP APNEA N CHICKENPOX N INFECTIOUS DISEASE N PROSTATE N HEART ARRHYTHMIA N INSOMNIA N HIGH CHOLESTEROL / HYPERLIPIDEMIA N EYE PROBLEMS N HYPERTHYROIDISM N EDEMA N CHRONIC PAIN SYNDROME N HYPOTHYROIDISM N CONSTIPATION N CAROTID BLOCKAGE N BACK / NECK PROBLEMS N HAVE YOU BEEN HOSPITALIZED OR SEEN IN [facility] IN THE PAST YEAR ? N ATHEROSCLEROSIS N BREAST PROBLEMS N DIALYSIS N ECZEMA N OSTEOPOROSIS N ARTHRITIS N NO SIGNIFICANT PAST MEDICAL HISTORY N APPENDICITIS N DIABETES, TYPE N BAD TEETH N ENT N HEARTBURN / REFLUX N AUTISM SPECTRUM DISORDER (ASD) N HEPATITIS / LIVER DISEASE N GOUT N SLEEP DISORDER N ALZHEIMER'S DISEASE N Brain Problems N DEMENTIA N HERPES N SEIZURES/EPILEPSY N HEADACHES/MIGRAINES N VASCULAR DISEASE N PACEMAKER N Blood Disorder N DIZZINESS N HEART DISEASE/HEART PROBLEMS N KIDNEY DISEASE N MULTIPLE SCLEROSIS N CANCER: SPECIFY Y CARDIAC ARRHYTHMIA N ATRIAL FIBRILLATION N Gall Stones N PULMONARY EMBOLISM N AUTOIMMUNE DISEASE N Gynecological HistoryNo gynecological history recorded. Obstetrics History GPAL:G 0 P 0 0 0 0 Immunizations Vaccine Type Date Status Note Provider Nam e and Address Organization Details Recorded Time SARS-COV-2 (COVID-19) vaccine, UNSPECIFIED 1 completed Not Available [facility] 06/23/2022 20:41:32 SARS-COV-2 (COVID-19) vaccine, UNSPECIFIED 1 completed Not Available [facility] 06/23/2022 20:41:32 Past Encounters Encounter ID Performer Location Encounter Start Date Encounter Closed Date Diagnosis/Indication Diagnosis SNOMED-CT Code Diagnosis ICD10 Code Diagnosis Note [id number] Adam Byers MD [facility] [address] [address] 08/25/2020 00:00:00 08/25/2020 13:02:44 [id number] Adam Byers MD [facility] [address] [address] 07/06/2021 00:00:00 07/06/2021 17:15:49 [id number] Adam Byers MD [facility] [address] [address] 01/21/2022 00:00:00 01/21/2022 15:13:50 [id number] Adam Byers MD [facility] [address] [address] 05/26/2022 00:00:00 05/26/2022 17:13:26 [id number] Adam Byers MD [facility] [address] [address] 07/12/2022 16:46:19 07/12/2022 17:14:55 Adult health examination 786702568 Z00.00 Depression screening 171 168755 Z13.31 Family his tory of Cardiovascular disease 251731756 Z82.49 Hypothyroidism 06813944 E03.9 Carcinoma of breast 2548 51661 C50.904 [id number] Adam Byers MD [facility] [address] [place] [address] [address] [place] [address] 04/19/2023 11:28:34 04/19/2023 12:12:10 Carcinoma of breast 842284338 C50.919 Family his tory of Cardiovascular disease 684146553 Z82.49 Hypothyroidism 43784527 E03.9 Anxiety disorder 0755275 06 F41.9 Gastroesop hageal reflux disease 557945797 K21.9 [id number] Adam Byers MD [facility] Internal [facility] [address] [facility], [facility] [address] [place] [address] 07/18/2023 16:42:52 07/18/2023 17:11:29 Adult health examination 063879433 Z00.00 Depression screening 171 102166 Z13.31 Carcinoma of breast 2548 27488 C50.919 Gastroesop hageal reflux disease 665816244 K21.9 Pure hypercholesterolemia 313515317 E78.00 Health Concerns Section Related Observation LastModified by Organization Detai ls LastModified Time None Recorded Concern Status LastModified by Organization Details LastModified Time None Recorded Advance Directives Directive None Recorded Payers Insurance Date Sequence Insurance Name Policy Number Policy Osborne Covered Member ID Osborne Member ID Guarantor Name 07/18/2023 1 [facility] [id number] Kassie Khalil [id number] Kassie Khalil Notes Date Note Type Note Provider Name and Address Organization Details Recorded Time 3 text/html Patient Name: Kassie GrecoDate Of Service: Tuesday ( 07.12.2022 ): 1975 Age: 47 There has been approximately a 2 lb weight loss since 05/26/2022. This represents approximately a 1.0% change in weight. Weight change attributable to lifestyle changes. Vital Signs:Blood Pressure: Sitting Rt. Arm 118/78Pulse: Sitting 95 /min and RegularRespirations: 12Height 67 in or 1.7 mWeight 200 lb or 90.7 kgBMI 31.3Temperature: 96.9 F or 36.1 CPulse Oximetry: 98 % at rest on no oxygen Chief Complaint: Addressed in HPI Problems or conditions discussed in the HPI were the only ones reviewed during the encounter.Only social and family history addressed in the HPI were reviewed during this encounter. Attendant(s): None Constitutional and Systemic Symptoms: none Medication Reconciliation: from medication list. History of Present Illness In for a well patient check up. Last well patient evaluation was approximately one year. No interval complaints of any major medical problems. No hx of any chest pain, shortness of breath, nausea, vomiting, diarrhea or constitutional symptoms. Also being followed for other chronically monitored problems.Has Had A Mammogram already doneHas Had A Pap Smear dueImmunizations Up To Date or refuses to takeNo Significant Change In Family HxColonoscopy or Cologuard: dueFall Risk normalDepression Score: 0Hearing normalVision normalReviewed Smoking and Drug HistoryReviewed Immunization HistoryInstructed on importance of weight on diabetes, heart and other diseases aggravated by obesity. #1. Hx of hypothyroidism currently stable. Heat intolerance: no Fatigue: no Weight gain: no Difficulty concentrating: no Muscle Symptoms: none Skin Texture: normal Skin Color: normal Currently taking synthroid. #2. Hx of Ca of both breast(s). Sub classification: see oncology records. Metastasis: None Current Medications: none..Medication List Reviewed and Reconciled 07/12/2022Wellbutrin Xl 150 MG (TABLET, EXTENDED RELEASE - ORAL) Once DailyLevothyroxine 0.1 MG (CAPSULE - ORAL) One DailyVaccination and Efoquiwcxavd7702-43 Covid ModernaSurgical HistoryHysterectomy, Double Mastectomy, Skin Graft Left ShoulderPreventative Testing Confirmed by Our Fifmelb6107/07/2021 ALBUMIN 3.7 G/DLSocial HistorySmokes 1/2 pack daily for 25 yearsDrinks sociallyFourth Grade TeacherFamily HistoryMother 65 hx of CA of Breast - Perforated PUD - DMFather 50 sudden from CAD. Fraternal uncle with CADOne brother living good health has a heart murmurOne half sister living in good health Adam Byers MD [address] [facility], [facility] [address], [place], [address], [facility] [email or web address] 07/12/2022 17:09:29 3 text/html Patient Name: Kassie Jama Of Service: Tuesday ( 04.19.2023 ): 1975 Age: 47 There has been approximately a 6 lb weight loss since 07/12/2022. This represents approximately a 3.0% change in weight. Weight change attributable to lifestyle changes. Vital Signs:Blood Pressure: Sitting Rt. Arm 120/76Pulse: Sitting 80 /min and RegularRespiratory Rate: 12Height 67 in or 1.7 mWeight 194 lb or 88.0 kgBMI 30.4Temperature: 98.1 F or 36.7 C Chief Complaint: Addressed in HPI Problems or conditions discussed in the HPI were the only ones reviewed during the encounter.Only social and family history addressed in the HPI were reviewed during this encounter. Attendant(s): HusbandConstitutional and Systemic Symptoms:none Medication Reconciliation: from medication list. History of Present Illness #1. Hx of Ca of both breast(s). Sub classification: see oncology records. Metastasis: None Current Medications: Family history of cardiovascular disease premature. Has had recent blood work performed which showed fairly good cholesterol. Will check a high sensitivity C-reactive protein as well as lipoprotein level. Will continue on current Rx otherwise... #2. no: #3. Hx of hypothyroidism currently stable. Heat intolerance: no Fatigue: no Weight gain: no Difficulty concentrating: none Muscle Symptoms: dry Skin Texture: unchanged Skin Color: synthroid Currently taking some. #4. Anxiety Disorder: History of anxiety disorder. There has been Wellbutrin panic attacks. No interval complaints of any vegetative or other signs of depression. Taking [ Taking medication?, no medication ]. Discussed possibility of decreasing and weaning off medication. Feels that current regimen is working fine and wishes not to change the current treatment regimen. Medication not causing any sedation or cognitive dysfunction and there is no contraindication to continue current therapy.Medication List Reviewed and Reconciled 04/19/2023Wellbutrin 300 MG TABLET, EXTENDED RELEASE Once DailyLevothyroxine 0.1 MG (CAPSULE - ORAL) One DailyVaccination and Arhaosyqgbfm0130-72 Covid ModernaSurgical HistoryHysterectomy, Double Mastectomy, Skin Graft Left ShoulderPreventative Testing Confirmed by Our Gdqvwhz0007/26/2022 ALBUMIN 3.8 G/DL NSocial HistorySmokes 1/2 pack daily for 25 yearsDrinks sociallyFourth Grade TeacherFamily HistoryMother 65 hx of CA of Breast - Perforated PUD - DMFather 50 sudden from CAD. Fraternal uncle with CADOne brother living good health has a heart murmurOne half sister living in good health Adam Byers MD [address] [facility] [address], [place], [address], [place] [facility] [place] [facility] 04/19/2023 12:10:27 4 text/html Patient Name: Kassie Mills Of Service: Tuesday ( 07.18.2023 ): 1975 Age: 48 Chief Complaint: Addressed in HPI Problems or conditions discussed in the HPI were the only ones reviewed during the encounter.Only social and family history addressed in the HPI were reviewed during this encounter. Attendant(s): NoneConstitutional and Systemic Symptoms:none Medication Reconciliation: from medication list. History of Present Illness In for a well patient check up. Last well patient evaluation was approximately one year. No interval complaints of any major medical problems. No hx of any chest pain, shortness of breath, nausea, vomiting, diarrhea or constitutional symptoms. Also being followed for other chronically monitored problems.Has Had A Mammogram already doneHas Had A Pap Smear already doneImmunizations Up To Date or refuses to takeNo Significant Change In Family HxColonoscopy or Cologuard: dueFall Risk normalDepression Score: 0Hearing normalVision normalReviewed Smoking and Drug HistoryReviewed Immunization HistoryInstructed on importance of weight on diabetes, heart and other diseases aggravated by obesity. #1. Hx of esophageal reflux currently stable. Hx of Complications: none The severity, duration and intensity of symptoms have improved. Frequency: most meals Treatment consists medications taken on intermittent basis. Current therapy includes no nausea, eructation, vomiting, hematemesis, dysphagia, velopharyngeal insufficiency and odynophagia. There has been no. No change in he frequency or intensity of symptoms. Has had no melena. Has had NA . Discussed use of H2 antagonists Type II Hypercholesterolaemia. #2. taking medication and tolerating well: Currently No. fair control interval complaints of any muscle pain or arthralgia. No significant liver changes with medications. Last lipid panel: diet and Rosuvastatin. Therapy reviewed regarding treatment of cholesterol management and include both. #3. Hx of Ca of see oncology records breast(s). Sub classification: None. Metastasis: none Current Medications: none.. Active Medication ListNexium 40 MG CAPSULE, DELAYED RELEASE One DailyLorazepam 1 MG TABLET One Tid Prn AnxietyRosuvastatin 10 MG TABLET One DailyWellbutrin 300 MG TABLET, EXTENDED RELEASE Once DailyLevothyroxine 0.1 MG (CAPSULE - ORAL) One Daily Vaccination and [id number] Covid Moderna Surgical [id number] Kiyeuyoiyctz1952-15 Double Kwixpqitys1262-88 Skin Graft Left Shoulder Preventative Zergxbm5907/26/2022 ALBUMIN 3.8 G/DL N Social HistorySmokes 1/2 pack daily for 25 yearsK[facility] Teacher Family HistoryMother 65 hx of CA of Breast - Perforated PUD - DMFather 50 sudden from CAD. Fraternal uncle with CADOne brother living good health has a heart murmurOne half sister living in good health Active Medication ListNexium 40 MG CAPSULE, DELAYED RELEASE One DailyLorazepam 1 MG TABLET One Tid Prn AnxietyRosuvastatin 10 MG TABLET One DailyWellbutrin 300 MG TABLET, EXTENDED RELEASE Once DailyLevothyroxine 0.1 MG (CAPSULE - ORAL) One Daily Vaccination and Jfbuqgluuhlf2321-96 Covid Moderna Surgical Pcfvxxw1004-42 Aqfaftrzcjen3954-07 Double Cfakjvvjsz5221-16 Skin Graft Left Shoulder Preventative Pwyerot2307/26/2022 ALBUMIN 3.8 G/DL N Social HistorySmokes 1/2 pack daily for 25 yearsDrMulti[facility] Teacher Family HistoryMother 65 hx of CA of Breast - Perforated PUD - DMFather 50 sudden from CAD. Fraternal uncle with CADOne brother living good health has a heart murmurOne half sister living in good health Adam Byers MD [address] [facility], [facility] [address], [place], [address], [facility] [employer] 07/18/2023 17:09:40 OBGyn Episode No OBEpisode recorded.
== END 2024-10-06 09:54 | disposition home or self-care (01) ==
PROVIDERS: PCP Nurse Practitioner; Visit Provider Psychiatry & Neurology Neurology
DX: D32.9 Benign neoplasm of meninges, unspecified (principal); R90.82 White matter disease, unspecified
CPT/HCPCS: 70553; A9577